=== PATIENT | male | born 1955 | race Caucasian/White ===

== ENCOUNTER 2017-06-09 11:04 | Emergency (ER) | payer OTHER ==
[~2017-06-09] VITALS: Ht 177.8 cm; Wt 168.0 kg
[2017-06-09 11:29] VITALS: BP 167/82; PULSE 100; RESP 18; TEMP 98.5; O2SAT 96
[2017-06-09 12:41] LABS: BASOPHIL # 0.1 TH/MM3 (0-0.2); BASOPHIL % 0.6 % (0.0-2.0); EOSINOPHIL # 0.2 TH/MM3 (0-0.4); EOSINOPHIL % 1.7 % (0.0-4.0); HEMATOCRIT 45.1 % (39.0-51.0); HEMOGLOBIN 14.9 GM/DL (13.0-17.0); LYMPH % 16.3 % (9.0-44.0); LYMPHOCYTE # 1.5 TH/MM3 (1.0-4.8); MEAN CELL VOLUME 85.9 FL (80.0-100.0); MEAN CORPUSCULAR HEMOGLOBIN 28.4 PG (27.0-34.0); MEAN PLATELET VOLUME 12.2 FL (7.0-11.0); MONO % 6.7 % (0.0-8.0); MONOCYTE # 0.6 TH/MM3 (0-0.9); NEUT % 74.7 % (16.0-70.0); PLATELET COUNT 167 TH/MM3 (150-450); RED BLOOD COUNT 5.25 MIL/MM3 (4.50-5.90); RED CELL DISTRIBUTION WIDTH 15.3 % (11.6-17.2); WHITE BLOOD COUNT 9.4 TH/MM3 (4.0-11.0)
[2017-06-09 12:49] LABS: INTERNATIONAL NORMALIZED RATIO 1.1 RATIO; PROTHROMBIN TIME - PATIENT 11.4 SEC (9.8-11.6)
[2017-06-09 13:08] LABS: ALBUMIN 3.2 GM/DL (3.4-5.0); AST (GOT) 17 U/L (15-37); BICARBONATE 32.2 MEQ/L (21.0-32.0); BLOOD UREA NITROGEN 15 MG/DL (7-18); CALCIUM 9.2 MG/DL (8.5-10.1); CHLORIDE 101 MEQ/L (98-107); CREATININE 0.93 MG/DL (0.60-1.30); GLOMERULAR FILTRATION RATE 82 ML/MIN (>89); GLUCOSE,RANDOM 149 MG/DL (74-106); SODIUM (NA) 141 MEQ/L (136-145)
[2017-06-09 13:11] LABS: ALKALINE PHOSPHATASE 68 U/L (45-117); ALT (GPT) 22 U/L (12-78); TOTAL BILIRUBIN ADULT 0.5 MG/DL (0.2-1.0); TOTAL PROTEIN 7.3 GM/DL (6.4-8.2)
--- NOTE | 2017-06-09 13:12 | RADRPT ---
EXAM DATE/TIME: 06/09/2017 12:06 [place] COMPARISON: No previous studies available for comparison. INDICATIONS : Right foot pain and swelling. MEDICAL HISTORY : Gout. DVT. SURGICAL HISTORY : None. ENCOUNTER: Initial ACUITY: 1 day PAIN SCORE: 0/10 LOCATION: Right Leg. TECHNIQUE: Venous ultrasound of the leg was performed from the inguinal ligament to the proximal calf. Real-todd e, color Doppler and spectral tracing, compression and augmentation techniques were used. FINDINGS: There is normal compressibility of the deep venous system from the inguinal region to the proximal ca lf. No echogenic clot is seen in the lumen of the common femoral, femoral, popliteal, and posterior tibial veins. There is a normal response of the venous system to proximal and distal augmentation an d respiration. CONCLUSION: No evidence of deep venous thrombosis within the right lower extremity. Flash Mcdonald MD on June 09, 2017 at 13:05 Board Certified Radiologist. This report was verified electronically.
--- NOTE | 2017-06-09 13:41 | PD ---
HPI Chief Complaint: Medical Clearance Time Seen by Provider: 13:25 Travel History International Travel<30 days: No Contact w/Intl Traveler<30days: No Traveled to known affect area: No History of Present Illness HPI 62-year-old male with history of diabetes, gout, coronary artery disease, presents for evaluation of right foot pain. Symptoms started 4 days ago. The pain started in the MTP joint of the right great toe and it feels like previous instances of gouty arthritis that he has experienced in his right foot. He reports that he has been limping secondary to the pain. He reports that 3 days ago he started to develop some pain in his right calf. He describes it as sharp pain which is reproduced when walking. He denies any injuries. He reports that he has a history of DVT in the left lower extremity for which he is on Xarelto. This is his concern today. He denies any trauma to the right foot. He denies any fevers, chills, chest pain, shortness of breath. His primary care physician is Dr. De Souza. He has no other complaints at this time. [facility] Social History Alcohol Use: No Tobacco Use: No Allergies-Medications (Allergen,Severity, Reaction): Coded Allergies: No Known Allergies (Unverified , 06/09/17) Reported Meds & Prescriptions Reported Meds & Active Scripts Active Tylenol-Codeine #3 (Acetaminophen-Codeine) 300-30 mg Tab 1 Tab PO Q6H PRN Prednisone 20 Mg Tab 20 Mg PO BID 5 Days Reported Crestor (Rosuvastatin Calcium) 20 Mg Tab 20 Mg PO HS Levemir Flextouch Pen Inj (Insulin Detemir) 300 unit/3 ML Pen 47 Units SQ BID Metformin (Metformin HCl) 850 Mg Tab 850 Mg PO TIDPC Diltiazem ER 24 HR 180 Mg Rayna 180 Mg PO DAILY Furosemide 20 Mg Tab 20 Mg PO BID Metoprolol Succinate ER 24 HR (Metoprolol Succinate) 25 Mg Tab 25 Mg PO DAILY Lisinopril 40 Mg Tab 40 Mg PO DAILY Xarelto (Rivaroxaban) 20 Mg Tab 20 Mg PO DAILY Review of Systems Except as stated in HPI: all other systems reviewed are Neg Physical Exam Narrative GENERAL: Well-developed well-nourished male in no acute distress. BMI 53.1. SKIN: Warm and dry. No open wounds. HEAD: Atraumatic. Normocephalic. EYES: Pupils equal and round. No scleral icterus. No injection or drainage. ENT: No nasal bleeding or discharge. Mucous membranes pink and moist. NECK: Trachea midline. No JVD. CARDIOVASCULAR: Regular rate and rhythm. No murmur appreciated. RESPIRATORY: No accessory muscle use. Clear to auscultation. Breath sounds equal bilaterally. GASTROINTESTINAL: Abdomen soft, non-tender, nondistended. Hepatic and splenic margins not palpable. MUSCULOSKELETAL: There is tenderness to palpation of the right foot first MTP joint. There is pain with flexion and extension of the right great toe. There is no pain with range of motion activities of the second through fifth toes. There is trace tibial edema to the lower extremities bilaterally. There is some tenderness to palpation of the right calf musculature. The Achilles tendon is intact. There is no erythema of the skin to the lower extremities. 2 + dorsalis pedis pulse bilaterally. NEUROLOGICAL: Awake and alert. No obvious cranial nerve deficits. Motor grossly within normal limits. Normal speech. Data Data Last Documented VS Vital Signs Date Time Temp Pulse Resp B/P (MAP) Pulse Ox O2 Delivery O2 Flow Rate FiO2 06/09/17 11:29 98.5 100 18 167/82 (110) 96 Orders Orders Complete Blood Count With Diff (06/09/17 11:32) Comprehensive Metabolic Panel (06/09/17 11:32) Prothrombin Time / Inr (Pt) (06/09/17 11:32) Us Leg Venous Doppler (06/09/17 11:35) Ed Discharge Order (06/09/17 13:59) Labs Laboratory Tests Test 06/09/17 12:20 White Blood Count 9.4 TH/MM3 Red Blood Count 5.25 MIL/MM3 Hemoglobin 14.9 GM/DL Hematocrit 45.1 % Mean Corpuscular Volume 85.9 FL Mean Corpuscular Hemoglobin 28.4 PG Mean Corpuscular Hemoglobin Concent 33.0 % Red Cell Distribution Width 15.3 % Platelet Count 167 TH/MM3 Mean Platelet Volume 12.2 FL Neutrophils (%) (Auto) 74.7 % Lymphocytes (%) (Auto) 16.3 % Monocytes (%) (Auto) 6.7 % Eosinophils (%) (Auto) 1.7 % Basophils (%) (Auto) 0.6 % Neutrophils # (Auto) 7.0 TH/MM3 Lymphocytes # (Auto) 1.5 TH/MM3 Monocytes # (Auto) 0.6 TH/MM3 Eosinophils # (Auto) 0.2 TH/MM3 Basophils # (Auto) 0.1 TH/MM3 CBC Comment DIFF FINAL Differential Comment Prothrombin Time 11.4 SEC Prothromb Time International Ratio 1.1 RATIO Blood Urea Nitrogen 15 MG/DL Creatinine 0.93 MG/DL Random Glucose 149 MG/DL Total Protein 7.3 GM/DL Albumin 3.2 GM/DL Calcium Level 9.2 MG/DL Alkaline Phosphatase 68 U/L Aspartate Amino Transf (AST/SGOT) 17 U/L Alanine Aminotransferase (ALT/SGPT) 22 U/L Total Bilirubin 0.5 MG/DL Sodium Level 141 MEQ/L Potassium Level 4.2 MEQ/L Chloride Level 101 MEQ/L Carbon Dioxide Level 32.2 MEQ/L Anion Gap 8 MEQ/L Estimat Glomerular Filtration Rate 82 ML/MIN [facility] Medical Decision Making Medical Screen Exam Complete: Yes Emergency Medical Condition: Yes Medical Record Reviewed: Yes Differential Diagnosis Podagra gouty arthritis versus toe sprain versus cellulitis versus peripheral vascular disease versus DVT Narrative Course 62-year-old male presents with 4 days of pain that started in his MTP joint of the right first toe consistent with previous instances of gouty arthritis that he has had in the past. He developed sharp pain in his right calf over the past 3 days and was concerned about the possibility of DVT given his history of DVT in the left lower extremity. He is on Xarelto. On examination he has excellent peripheral pulses. He has no cellulitic changes. His pain seems to be primarily localized to the right great toe. He has some tenderness to palpation of the right calf musculature. The Achilles tendon is intact. Lab work was obtained in triage. CBC is unremarkable. CMP reveals an albumin of 3.2, glucose 149, carbon dioxide 32.2 otherwise unremarkable. Ultrasound of the right lower extremity reveals no evidence of DVT. At this point in time the plan is to treat the patient for gouty arthritis of the right great toe. He has a history of coronary artery disease so NSAID use will be avoided. He will be discharged with a short course of prednisone and Tylenol with Codeine. Diagnosis Primary Impression: Gouty arthritis of right great toe Additional Instructions: Medication as prescribed. Monitor blood sugar closely while on prednisone. Follow-up closely with primary care physician. Return for any emergent medical conditions. Med/Other Pt SpecificInfo: Prescription(s) given Scripts Acetaminophen-Codeine (Tylenol-Codeine #3) 300-30 mg Tab 1 TAB PO Q6H Y for PAIN, #15 TAB 0 Refills Prov: Dick Whipple MD 06/09/17 Prednisone (Prednisone) 20 Mg Tab 20 MG PO BID for 5 Days, #10 TAB 0 Refills Prov: Dick Whipple MD 06/09/17 Disposition: 01 DISCHARGE HOME Condition: Stable Óscar Moffett Jun 09, 2017 13:41
[2017-06-09] MEDS ORDERED: XARE20TA PO (13:49)
[2017-06-09] MEDS ORDERED: LISI40TA PO (13:49)
[2017-06-09] MEDS ORDERED: ROSU20 PO (13:49)
[2017-06-09] MEDS ORDERED: DILT0.05 PO (13:49)
[2017-06-09] MEDS ORDERED: METO1TAB42 PO (13:49)
[2017-06-09] MEDS ORDERED: INSU1INJ5 SQ (13:49)
[2017-06-09] MEDS ORDERED: FURO20TA PO (13:49)
[2017-06-09] MEDS ORDERED: METF850T PO (13:49)
[2017-06-09] MEDS ORDERED: PRED20 PO (13:56)
[2017-06-09] MEDS ORDERED: TYLETAB34 PO (13:56)
== END 2017-06-09 15:16 | disposition home or self-care (01) ==
LOC: NEPC 11:04
DX: M10.9 Gout, unspecified (principal); M79.661 Pain in right lower leg; E11.9 Type 2 diabetes mellitus without complications; I25.10 Atherosclerotic heart disease of native coronary artery without angina pectoris; Z79.899 Other long term (current) drug therapy; Z86.718 Personal history of other venous thrombosis and embolism
CPT/HCPCS: 80053; 85025; 85610; 93971